=== PATIENT | male | born 1980 | race African-American/Black ===

== ENCOUNTER 2021-09-07 17:01 | Emergency (ER) | payer SELFPAY ==
[2021-09-07] MEDS ORDERED: Acetaminophen 500 MG TAB ONE (17:30)
[2021-09-08 14:45] LABS: SARS-CoV-2 PCR by NAA Not Detected (NotDetected)
== END 2021-09-07 18:07 | disposition home or self-care (01) ==
LOC: NAV ERS 17:01
DX: J06.9 Acute upper respiratory infection, unspecified (principal); Z20.822 Contact with and (suspected) exposure to COVID-19; E11.9 Type 2 diabetes mellitus without complications; F17.210 Nicotine dependence, cigarettes, uncomplicated; Z79.84 Long term (current) use of oral hypoglycemic drugs
CPT/HCPCS: 99283; U0003; U0005

== ENCOUNTER 2021-09-10 18:50 | Emergency (ER) | payer SELFPAY ==
[2021-09-10] MEDS ORDERED: Acetaminophen 500 MG TAB ONE (19:01)
[2021-09-10] MEDS ORDERED: Bicillin LA 1.2 MILLION UNITS/2 ML SYRINGE ONE (20:21)
== END 2021-09-10 20:43 | disposition home or self-care (01) ==
LOC: NAV ERS 18:50
DX: J02.9 Acute pharyngitis, unspecified (principal); E11.9 Type 2 diabetes mellitus without complications; F17.210 Nicotine dependence, cigarettes, uncomplicated; Z79.84 Long term (current) use of oral hypoglycemic drugs
CPT/HCPCS: 87070; 87081; 87430; 96372; 99284; J0561